=== PATIENT | female | born 1980 | race African-American/Black ===

== ENCOUNTER 2020-09-06 04:13 | Inpatient (IN) | payer OTHER, SELFPAY ==
[2020-09-06] VITALS (16 sets, daily range): BP systolic 146–211; BP diastolic 92–123; PULSE 71–83; RESP 14–21; TEMP 36.4–37.2; O2SAT 94–99; BMI 40.8
--- NOTE | ~2020-09-06 | CT_ITS ---
EXAMINATION: CT HEAD WITHOUT CONTRAST CT ANGIOGRAM NECK WITH CONTRAST CT ANGIOGRAM BRAIN WITH CONTRAST CLINICAL INFORMATION: Dizziness. Left hand numbness. COMPARISON: None available. TECHNIQUE: First, a noncontrast CT of the head was performed. Test bolus sequences followed by intravenous administration 70 mL of Omnipaque 350. Helical imaging was performed in the axial plane from the thoracic inlet to the skull vertex. Delayed postcontrast imaging of the head was also performed. The data was processed at the cytometry technologist workstation for generation of MIP sequences. Angled MIPs and volume rendered reformatted images were also generated at an offline 3D workstation under concurrent supervision. Stenoses are assessed in accordance with NASCET criteria unless otherwise indicated. This CT examination was performed using dose optimization techniques as appropriate, variously including the following: *Automated exposure control *Adjustment of mA and/or kV according to patient size (this includes techniques or standardized protocols for targeted exams where dose is matched to indication/reason for exam; i.e. extremities or head) *Use of iterative reconstruction technique FINDINGS: BRAIN: [There is no intracranial hemorrhage, hydrocephalus, extra-axial surface collection, midline shift, or other herniation pattern. Cross to white matter differentiation is diffusely maintained without evidence of an evolved acute territorial infarct. The basilar cisterns are preserved. No significant soft tissue abnormality. No acute osseous abnormality. There is mild mucosal thickening throughout the ethmoid air cells and the sphenoid sinuses bilaterally. Small retention cysts within the right maxillary sinus. CERVICAL SOFT TISSUES AND LUNG APICES: No significant soft tissue findings within the neck. There is multilevel cervical spondylosis. Artifact versus a prominent disc herniation along the posterior aspect of the C4 vertebral body that would be better assessed with a dedicated cervical spine MRI if there is cervical myelopathy clinically. The imaged upper lungs are clear. NECK CTA: [There is a classic 3 vessel configuration of the aortic arch. Proximal arch vessels are non-stenotic. The vertebral arteries are codominant. No significant ostial stenosis is visualized on either side. Both vertebral arteries are widely patent throughout their extracranial cervical course. Both common carotid arteries are normal in course and caliber.] Lipid rich atherosclerotic plaque results in less than 50% stenoses of the proximal internal carotid arteries bilaterally. BRAIN CTA: [There is normal opacification of major intracranial arteries. No focal flow-limiting stenosis nor discrete proximal large artery occlusion. No aneurysm. Timing of the contrast bolus allows assessment of the major dural venous sinuses, which all opacify normally] CT/CT head/brain wo con IMPRESSION: - No acute intracranial findings. - Lipid rich atherosclerotic plaque results in less than 50% stenoses of the proximal internal carotid arteries bilaterally. No significant arterial stenoses in no acute arterial occlusions within the head or neck. - Multilevel cervical spondylosis. Artifact versus a prominent disc herniation along the posterior aspect of the C4 vertebral body that would be better assessed with a dedicated cervical spine MRI if there is cervical myelopathy clinically.
--- NOTE | ~2020-09-06 | XR_ITS ---
EXAMINATION: XR CHEST CLINICAL INFORMATION: Chest pain COMPARISON: 01/09/2018 TECHNIQUE: Frontal view of the chest was obtained. FINDINGS: Cardiac leads overlie the chest. The lungs are well expanded. There is no focal consolidation, edema, or effusion. No pneumothorax. The cardiomediastinal silhouette is within normal limits. No acute osseous abnormality. XR/XR chest 1V IMPRESSION: Clear lungs.
--- NOTE | ~2020-09-06 | MR_ITS ---
EXAMINATION: BRAIN MRI WITHOUT CONTRAST CLINICAL INFORMATION: Evaluate for stroke. Left upper extremity weakness. COMPARISON: CT angiogram of the head and neck 09/06/2020. TECHNIQUE: Multiplanar MR imaging of the brain was performed without contrast. FINDINGS: There is no acute territorial infarct. No pathological magnetic susceptibility artifact. Intracranial vascular flow voids are maintained. There is no intracranial mass effect or midline shift. No abnormal extra-axial collection. Lateral and third ventricles are normal. No hydrocephalus. Midline structures including the cervicomedullary junction are normal. No acute bone marrow signal changes. There is no mastoid middle ear effusion. [id number]-[id number] paranasal sinus disease primarily affecting the ethmoid air cells. Globes and orbits are symmetric. MR/MR head/brain wo con IMPRESSION: Unremarkable brain MRI. No evidence of acute territorial infarct or hemorrhage.
--- NOTE | ~2020-09-06 | CT_ITS ---
EXAMINATION: CT HEAD WITHOUT CONTRAST CT ANGIOGRAM NECK WITH CONTRAST CT ANGIOGRAM BRAIN WITH CONTRAST CLINICAL INFORMATION: Dizziness. Left hand numbness. COMPARISON: None available. TECHNIQUE: First, a noncontrast CT of the head was performed. Test bolus sequences followed by intravenous administration 70 mL of Omnipaque 350. Helical imaging was performed in the axial plane from the thoracic inlet to the skull vertex. Delayed postcontrast imaging of the head was also performed. The data was processed at the tissue technologist workstation for generation of MIP sequences. Angled MIPs and volume rendered reformatted images were also generated at an offline 3D workstation under concurrent supervision. Stenoses are assessed in accordance with NASCET criteria unless otherwise indicated. This CT examination was performed using dose optimization techniques as appropriate, variously including the following: *Automated exposure control *Adjustment of mA and/or kV according to patient size (this includes techniques or standardized protocols for targeted exams where dose is matched to indication/reason for exam; i.e. extremities or head) *Use of iterative reconstruction technique FINDINGS: BRAIN: [There is no intracranial hemorrhage, hydrocephalus, extra-axial surface collection, midline shift, or other herniation pattern. Cross to white matter differentiation is diffusely maintained without evidence of an evolved acute territorial infarct. The basilar cisterns are preserved. No significant soft tissue abnormality. No acute osseous abnormality. There is mild mucosal thickening throughout the ethmoid air cells and the sphenoid sinuses bilaterally. Small retention cysts within the right maxillary sinus. CERVICAL SOFT TISSUES AND LUNG APICES: No significant soft tissue findings within the neck. There is multilevel cervical spondylosis. Artifact versus a prominent disc herniation along the posterior aspect of the C4 vertebral body that would be better assessed with a dedicated cervical spine MRI if there is cervical myelopathy clinically. The imaged upper lungs are clear. NECK CTA: [There is a classic 3 vessel configuration of the aortic arch. Proximal arch vessels are non-stenotic. The vertebral arteries are codominant. No significant ostial stenosis is visualized on either side. Both vertebral arteries are widely patent throughout their extracranial cervical course. Both common carotid arteries are normal in course and caliber.] Lipid rich atherosclerotic plaque results in less than 50% stenoses of the proximal internal carotid arteries bilaterally. BRAIN CTA: [There is normal opacification of major intracranial arteries. No focal flow-limiting stenosis nor discrete proximal large artery occlusion. No aneurysm. Timing of the contrast bolus allows assessment of the major dural venous sinuses, which all opacify normally] CT/CT angio head neck IMPRESSION: - No acute intracranial findings. - Lipid rich atherosclerotic plaque results in less than 50% stenoses of the proximal internal carotid arteries bilaterally. No significant arterial stenoses in no acute arterial occlusions within the head or neck. - Multilevel cervical spondylosis. Artifact versus a prominent disc herniation along the posterior aspect of the C4 vertebral body that would be better assessed with a dedicated cervical spine MRI if there is cervical myelopathy clinically.
--- NOTE | ~2020-09-06 | US_ITS ---
EXAMINATION: US RENAL DOPPLER CLINICAL INFORMATION: Rule out renal artery stenosis. COMPARISON: None TECHNIQUE: Doppler, color and cross-scale evaluation of the kidneys. Cross-scale color and Doppler evaluation of the renal arteries including waveform spectral analysis. FINDINGS: The kidneys are normal in contour and symmetric in size of the right kidney measuring 13.4 x 7.3 x 5.8 cm and the left kidney measuring 12.4 x 5.8 x 5.1 cm. No renal stone, mass or hydronephrosis is seen. There are gallstones. The visualized abdominal aorta is normal in caliber. Aortic peak systolic velocity is upper normal measuring 99 cm/s. The right renal artery is patent. Right renal artery peak systolic velocity measures 152 cm/s proximally, 196 cm/s in the mid portion and 113 cm/s distally. Right renal artery to aorta ratio is 2. Resistive indices of the interlobar renal arteries in the right kidney measure 0.5-0.7. The right renal vein is patent. The left renal artery is patent. Left renal artery peak systolic velocities measure 185 cm/s proximally, 171 cm/s in the mid portion and 175 cm/s distally. Left renal artery to aorta ratio is 1.9. Resistive indices of the interlobar renal arteries in the left kidney measure 0.7. The left renal artery is patent. US/US renal doppler IMPRESSION: Normal appearing kidneys. Increased peak systolic velocities in the bilateral renal arteries suggestive of less than 60% stenosis bilaterally. Gallstones.
--- NOTE | 2020-09-06 04:31 | ECG_ITS ---
Test Reason : HIGH BP Blood Pressure : / mmHG Vent. Rate : 075 BPM Atrial Rate : 075 BPM P-R Int : 162 ms QRS Dur : 096 ms QT Int : 416 ms P-R-T Axes : 048 037 045 degrees QTc Int : 464 ms Normal sinus rhythm Anteroseptal infarct (cited on or before 09-JAN-2018) Abnormal ECG When compared with ECG of 09-JAN-2018 00:52, No significant change was found Referred By: Adia Vásquez Electronically Signed By:KULDIP LOPEZ
--- NOTE | 2020-09-06 04:57 | ED.CHESTPAIN ---
HPI - Chest Pain General Chief Complaint: Chest Pain Stated Complaint: HBP/chest pain Time Seen by Provider: 09/06/20 04:28 Source: patient Mode of arrival: ambulatory History of Present Illness HPI narrative: 39-year-old female with known high blood pressure as well depression presents with complaints of being at work and noticing that her left hand felt numb and that she also experienced dizziness as well as shortness of breath and chest pressure. She received 324 mg of aspirin at her job, but states that this did not help her symptoms. She states that she has continued uses same dose of her blood pressure medication without any recent changes, but states she has been under additional stress due to the loss of family members. Related Data Allergies Allergy/AdvReac Type Severity Reaction Status Date / Time No Known Allergies Allergy Unverified 11/19/19 19:31 [No Known Allergies*] Review of Systems Review of Systems: Pertinent positives and negatives as stated in HPI 10 point Review of systems is otherwise negative PMFSH Past Medical History Source: nursing notes reviewed Medical History Heart disease Hypertension Social History Social History Advance Directives: No Patient : No Physical Exam Vital Signs: Vital Signs: Last Vital Signs Temp 97.6 F 09/06/20 04:21 Pulse 71 09/06/20 06:05 Resp 16 09/06/20 06:05 BP 161/96 H 09/06/20 06:05 Pulse Ox 94 09/06/20 04:30 Body Mass Index 40.8 VITAL SIGNS: Reviewed. GENERAL: Well developed, well nourished, in no acute distress. HEAD: Normocephalic/atraumatic EYES: PERRLA, EOMI intact without pain, no nystagmus EARS: Ext canals without abnormality, TMs non-bulging and non-erythematous NOSE: Nares patent bilateral OROPHARYNX: no oral lesions noted, posterior pharynx clear NECK: Supple, no adenopathy LUNGS: Normal breath sounds. No adventitious sounds or accessory muscle use. SpO2<94> CARDIOVASCULAR: Regular rate and rhythm without noted murmurs, no JVD mild, nonpitting lower extremity edema, symmetrical pulses noted at radial/ DP/PT. ABDOMEN: Soft, non-tender, non-distended with bowel sounds. No rigidity. No guarding. No palpable masses or hernias noted LEFT UPPER EXTREMITY: on evaluation of sensation patient's entire hand is numb, but on sensation check is entirely intact circumferentially proximal to the wrist, capillary refill is less than 3 seconds, and is tactile warm, palpable ulnar and radial pulses are present SKIN: Inspection of the skin reveals no rashes NEUROLOGIC: Alert and oriented x 4. Strength and sensation to light touch were grossly intact x 4, no pronator drift, cranial nerves 2-12 grossly intact, left hand numbness not felt to be secondary to a focal deficit. NIH Stroke Scale Level of Consciousness: Alert Level of Consciousness Questions: Answers both questions correctly Level of Consciousness Commands: Performs both tasks correctly Best Gaze: Normal Visual: No visual loss Facial Palsy: Normal Motor Arm (Right): No drift Motor Arm (Left): No drift Motor Leg (Right): No drift Motor Leg (Left): No drift Limb Ataxia: Absent Sensory: Mild to moderate sensory loss Best Language: No aphasia Dysarthia: Normal Extinction and Inattention: No abnormality Score: 1 Course Course Course Narrative: 39-year-old female with history and clinical presentation consistent with hypertensive urgency and will re-evaluate after patient receives 10 mg of labetalol. Lab work, EKG, chest x-ray, urinalysis are pending. Aspirin was not administered as patient received at her work. All symptoms felt to be secondary to hypertensive episode and will re-evaluate after blood pressure improves. On re-evaluation after blood pressure improvement patient still with symptoms of dizziness as well as left hand numbness, motor function intact. Decision made to pursue CT of the head. Review of all investigations negative for acute findings, although troponin detected at 5.2 and will be repeated this is likely secondary to hypertensive episode. There are no noted EKG changes when compared to prior. Signed out to Dr Glass. MDM - Chest Pain Lab Data Result diagrams: 09/06/20 04:55 09/06/20 04:55 Labs: Lab Results 09/06/20 09/06/20 09/06/20 Range/Units 04:55 04:55 04:55 WBC 6.9 (4.8-10.8) X10*3/uL RBC 4.04 L (4.20-5.50) X10*6/uL Hgb 11.1 L (12.0-16.0) g/dl Hct 34.2 L (37-47) % MCV 84.7 (80-98) fL MCH 27.5 (27.0-33.0) pg MCHC 32.5 (31.0-35.0) g/dl RDW 13.4 (11.0-16.0) % Plt Count 255 (160-400) X10*3/uL MPV 11.8 (9.4-12.3) fL Immature Gran % (Auto) 0.3 (0.0-0.4) % Neut % (Auto) 55.3 (45-73) % Lymph % (Auto) 34.3 (20-40) % Ashley % (Auto) 8.1 (2-11) % Eos % (Auto) 1.9 (0-4) % Baso % (Auto) 0.1 (0-2) % Lymph # (Auto) 2.4 (1.2-4.9) X10*3/uL Ashley # (Auto) 0.6 (0.1-1.2) X10*3/uL Eos # (Auto) 0.1 (0.0-0.4) X10*3/uL Baso # (Auto) 0.0 (0.0-0.2) X10*3/uL Abs Immat Gran (auto) 0.02 (0.00-0.03) X10*3/uL Absolute Neuts (auto) 3.8 (2.0-8.3) X10*3/uL Absolute Nucleated RBC 0.000 (0.0-0.012) X10*3/uL Nucleated RBC % (auto) 0.0 (0.0-0.2) /100WBC PT 12.9 (9.9-13.0) SEC INR 1.1 (0.9-1.1) Sodium 138 (135-145) mmol/L Potassium 3.4 (3.3-5.1) mmol/L Chloride 104 (96-108) mmol/L Carbon Dioxide 25 (22-29) mmol/L Anion Gap 12 (12-20) BUN 12 (9-16) mg/dL Creatinine 0.75 (0.5-1.4) mg/dL Estim Creat Clear Calc 116.5 Estimated GFR > 60 Random Glucose 159 H (60-115) mg/dL Calcium 9.1 (8.4-10.2) mg/dL Magnesium 1.7 (1.6-2.6) mg/dL Total Bilirubin 0.2 (0.0-1.0) mg/dL AST 15 (5-31) U/L ALT 12 (0-31) U/L Alkaline Phosphatase 38 L (39-117) U/L Troponin I High Sens (<3.5-17.0) ng/L Total Protein 7.0 (6.5-8.0) g/dL Albumin 3.9 (3.5-5.0) g/dL Ethyl Alcohol mg/dL 09/06/20 09/06/20 Range/Units 04:55 04:55 WBC (4.8-10.8) X10*3/uL RBC (4.20-5.50) X10*6/uL Hgb (12.0-16.0) g/dl Hct (37-47) % MCV (80-98) fL MCH (27.0-33.0) pg MCHC (31.0-35.0) g/dl RDW (11.0-16.0) % Plt Count (160-400) X10*3/uL MPV (9.4-12.3) fL Immature Gran % (Auto) (0.0-0.4) % Neut % (Auto) (45-73) % Lymph % (Auto) (20-40) % Ashley % (Auto) (2-11) % Eos % (Auto) (0-4) % Baso % (Auto) (0-2) % Lymph # (Auto) (1.2-4.9) X10*3/uL Ashley # (Auto) (0.1-1.2) X10*3/uL Eos # (Auto) (0.0-0.4) X10*3/uL Baso # (Auto) (0.0-0.2) X10*3/uL Abs Immat Gran (auto) (0.00-0.03) X10*3/uL Absolute Neuts (auto) (2.0-8.3) X10*3/uL Absolute Nucleated RBC (0.0-0.012) X10*3/uL Nucleated RBC % (auto) (0.0-0.2) /100WBC PT (9.9-13.0) SEC INR (0.9-1.1) Sodium (135-145) mmol/L Potassium (3.3-5.1) mmol/L Chloride (96-108) mmol/L Carbon Dioxide (22-29) mmol/L Anion Gap (12-20) BUN (9-16) mg/dL Creatinine (0.5-1.4) mg/dL Estim Creat Clear Calc Estimated GFR Random Glucose (60-115) mg/dL Calcium (8.4-10.2) mg/dL Magnesium (1.6-2.6) mg/dL Total Bilirubin (0.0-1.0) mg/dL AST (5-31) U/L ALT (0-31) U/L Alkaline Phosphatase (39-117) U/L Troponin I High Sens 5.2 (<3.5-17.0) ng/L Total Protein (6.5-8.0) g/dL Albumin (3.5-5.0) g/dL Ethyl Alcohol < 10 mg/dL ECG Data ECG #1: Attestation: I personally reviewed and interpreted this ECG as follows: Prior ECG tracings: available for review ( 01/09/2018 no acute changes on comparison) Interpretation: normal sinus rhythm, HR -75, no acute evidence of ischemia, [place] /QRS /QTC are within normal limits.
[2020-09-06] MEDS: Labetalol HCL 100 MG/20 ML VIAL 10 MG IVPUSH (05:00)
[2020-09-06 05:01] LABS: Basophils Percent Auto 0.1 % (0-2); Eosinophils Absolute Auto 0.1 X10*3/uL (0.0-0.4); Eosinophils Percent Auto 1.9 % (0-4); Hematocrit 34.2 % (37-47); Hemoglobin 11.1 g/dl (12.0-16.0); Imm Gran Abs Auto 0.02 X10*3/uL (0.00-0.03); Imm Gran Pct Auto 0.3 % (0.0-0.4); Lymphocytes Absolute Auto 2.4 X10*3/uL (1.2-4.9); Lymphocytes Percent Auto 34.3 % (20-40); MANUAL DIFF FLAG NO; Mean Corpuscular HGB Conc 32.5 g/dl (31.0-35.0); Mean Corpuscular Hemoglobin 27.5 pg (27.0-33.0); Mean Corpuscular Volume 84.7 fL (80-98); Mean Platelet Volume 11.8 fL (9.4-12.3); Monocytes Absolute Auto 0.6 X10*3/uL (0.1-1.2); Monocytes Percent Auto 8.1 % (2-11); Neutrophils Absolute Auto 3.8 X10*3/uL (2.0-8.3); Neutrophils Percent Auto 55.3 % (45-73); Platelet Count 255 X10*3/uL (160-400); Red Blood Count 4.04 X10*6/uL (4.20-5.50); Red Cell Distribution Width 13.4 % (11.0-16.0); White Blood Count 6.9 X10*3/uL (4.8-10.8)
[2020-09-06 05:06] LABS: INTERNATIONAL NORM RATIO 1.1 (0.9-1.1); Prothrombin Time 12.9 SEC (9.9-13.0)
[2020-09-06 05:24] LABS: Troponin-I High Sensitivity 5.2 ng/L (<3.5-17.0)
[2020-09-06 05:29] LABS: Ethanol < 10 mg/dL
[2020-09-06 05:34] LABS: Alanine Aminotransferase 12 U/L (0-31); Albumin Level 3.9 g/dL (3.5-5.0); Alkaline Phosphatase 38 U/L (39-117); Anion Gap 12 (12-20); Aspartate Amino Transferase 15 U/L (5-31); Bilirubin Total 0.2 mg/dL (0.0-1.0); Blood Urea Nitrogen 12 mg/dL (9-16); Calcium 9.1 mg/dL (8.4-10.2); Carbon Dioxide 25 mmol/L (22-29); Chloride 104 mmol/L (96-108); Creatinine Clr Calc Pharmacy 116.5; Estimated Glomerular Filt Rate > 60; Glucose Random 159 mg/dL (60-115); Magnesium 1.7 mg/dL (1.6-2.6); Potassium 3.4 mmol/L (3.3-5.1); Sodium 138 mmol/L (135-145)
[2020-09-06 07:43] LABS: Glucose Urine UA NEG (NEG); Leukocyte Esterase Urine NEG (NEG); Nitrite Urine NEG (NEG); PH 5.5 (5.0-8.0); Specific Gravity - Urine <= 1.005 (1.005-1.025); Urine Blood 3+ (NEG); Urine Ketones NEG (NEG); Urine Protein NEG (NEG-TRACE)
[2020-09-06 07:45] LABS: Appearance Urine CLEAR; Color Urine STRAW
[2020-09-06] MEDS: iohexoL 350 MG/ML 100 ML INFUS..BTL 70 ML IV (07:47)
[2020-09-06 07:49] LABS: COVID-19 Test Negative (Negative); IDNOW Serial# 9DD0AD1C
[2020-09-06 07:55] LABS: Squamous Epithelial Cell Urine 1+ /LPF; WBC Urine 0-2 /HPF (0-4)
[2020-09-06 07:56] LABS: Bacteria Urine TRACE /LPF
--- NOTE | 2020-09-06 08:02 | PHA.MEDREC ---
Pharmacy Consult ? Medication Reconciliation Pharmacy has completed the medication reconciliation. Patient unsure of the medications she is taking. The only pharmacy she uses is [facility] in [place]. She reports she is taking an antidepressant but the only medication that has been filled is Lexapro in November 2019. She also said valsartan however valsartan/HCTZ has not been filled since 06/29/2020. Monica Townsend, Maria LD
[2020-09-06 08:19] LABS: Amphetamine Screen Urine Not Detected (Not Detect); Barbiturates, Urine Not Detected (Not Detect); Benzodiazepines Screen Urine Not Detected (Not Detect); Cannabinoid Screen Urine POSITIVE (Not Detect); Cocaine Screen Urine Not Detected (Not Detect); Opiate Screen Urine Not Detected (Not Detect); Phencyclidine Screen Urine Not Detected (Not Detect)
[2020-09-06 08:58] LABS: Troponin-I High Sensitivity 3.7 ng/L (<3.5-17.0)
[2020-09-06] MEDS: Labetalol HCL 100 MG/20 ML VIAL IVPUSH (09:04)
[2020-09-06] MEDS: amLODIPine Besylate 5 MG TABLET PO (10:58)
[2020-09-06] MEDS: Valsartan 160 MG TABLET PO (10:59)
--- NOTE | 2020-09-06 12:01 | PM.IMHP ---
History of Present Illness Date of Service: 09/06/20 Chief Complaint: left arm numbness, a 39 years old lady with PMH of hypertension, morbid obesity who presents to the hospital with a complaint of left upper extremity weakness and numbness for 1 day prior to admission. The patient reported that she started feeling numbness in left lower extremity yesterday morning but he did not think much about at that point but as the day continued she felt some weakness and the more than just numbness with associated chest heaviness with dyspnea on exertion occasions but no reported nausea, vomiting, headache, shortness of breath or urinary symptoms. She reports that at times she goes to the gym and try to play games but she has to stop as her blood pressure shoots up and the machine is showed down. She reports she has a family history of strokes diabetes with elevated blood pressure readings. She was diagnosed 1st time with hypertension with her 1st but resolved after that. She had preeclampsia during her last continue to elevated blood pressure readings since then 10 years ago. In the emergency she was found to blood pressure reading of 210/120 responded mildly to usage of labetalol. CT scan of the head was negative for any stroke or bleeding but a CTA showed carotid artery disease bilaterally. Will be admitted to the hospital for further evaluation and treatment. Review of Systems Review of Systems: No fever, chills or weakness chest discomfort, no palpitation No shortness of breath or coughing No abdominal pain, nausea or vomiting No urinary symptoms No any rash or wounds Right upper extremity wakness and numbnessa [facility] Medical History Heart disease Hypertension Social History Advance Directives: No Patient : No Meds Allergies Allergy/AdvReac Type Severity Reaction Status Date / Time No Known Allergies Allergy Unverified 11/19/19 19:31 [No Known Allergies*] Active Medications: Current Medications Generic Name Dose Route Start Last Admin Trade Name Freq PRN Reason Stop Dose Admin Acetaminophen 650 mg 09/06/20 11:28 Acetaminophen 325 Mg Tablet PO Q6H PRN Pain, Mild (Pain Scale 1-3) Aspirin 81 mg 09/07/20 09:00 Aspirin Enteric Coated 81 Mg Tablet. PO DAILY NAVIN Atorvastatin Calcium 40 mg 09/06/20 11:35 Atorvastatin Calcium 40 Mg Tablet PO DAILY [facility] Enoxaparin Sodium 40 mg 09/06/20 11:30 Enoxaparin Sodium 40 Mg/0.4 Ml Syringe SUBCUT Q24H [facility] Ondansetron HCl 4 mg 09/06/20 11:28 Ondansetron Hcl 4 Mg/2 Ml Vial IVPUSH Q8H PRN Nausea and Vomiting Pharmacy Consult 1 each 09/06/20 07:09 Consult Rx Perform Med Rec MISCELLANE ONCE PRN Consult order Sodium Chloride 3 ml 09/06/20 16:00 0.9 % Sodium Chloride Flush 3 Ml Syringe IVFLUSH QSHIFT [facility] Home Medications Medication Instructions Recorded Confirmed Last Taken Type valsartan-hydrochlorothiazide 1 tab PO DAILY 09/06/20 09/06/20 Unknown History Physical Exam Vital Signs and Narrative: Vital Signs: Last Vital Signs Temp 97.6 F 09/06/20 04:21 Pulse 83 09/06/20 10:43 Resp 14 09/06/20 10:43 BP 185/107 H 09/06/20 10:59 Pulse Ox 94 09/06/20 04:30 Body Mass Index 40.8 Const: Other: Constitutional : Alert, oriented, mildly anxious Neck : Normal inspection, Supple Cardiovascular : RRR, S1 S2, no lower extremity edema Respiratory : Good bilateral air entry, no crackles, wheezes or rhonchi Gastrointestinal: soft, lax, Normal bowel sounds, Non tender Skin : Warm/Dry, No rash Neurological : Alert & oriented x3, right hand mild weakness on the bacteriologist soil Results Labs CBC and Chem 7: 09/06/20 04:55 09/06/20 04:55 Labs: Laboratory Results - last 24 hr 09/06/20 09/06/20 09/06/20 04:55 04:55 04:55 MCV 84.7 MCH 27.5 MCHC 32.5 RDW 13.4 Plt Count 255 MPV 11.8 Immature Gran % (Auto) 0.3 Neut % (Auto) 55.3 Lymph % (Auto) 34.3 [place] % (Auto) 8.1 Eos % (Auto) 1.9 Baso % (Auto) 0.1 Lymph # (Auto) 2.4 [place] # (Auto) 0.6 Eos # (Auto) 0.1 Baso # (Auto) 0.0 Abs Immat Gran (auto) 0.02 Absolute Neuts (auto) 3.8 Absolute Nucleated RBC 0.000 Nucleated RBC % (auto) 0.0 PT 12.9 INR 1.1 Anion Gap 12 Estim Creat Clear Calc 116.5 Estimated GFR > 60 Random Glucose 159 H Calcium 9.1 Magnesium 1.7 Total Bilirubin 0.2 AST 15 ALT 12 Alkaline Phosphatase 38 L Troponin I High Sens Total Protein 7.0 Albumin 3.9 Urine Color Urine Appearance Urine pH Ur Specific [place] Urine Protein Urine Glucose (UA) Urine Ketones Urine Blood Urine Nitrite Ur Leukocyte Esterase Urine RBC Urine WBC Ur Squamous Epith Cells Urine Bacteria Urine Opiates Screen Ur Barbiturates Screen Ur Phencyclidine Scrn Ur Amphetamines Screen U Benzodiazepines Scrn Urine Cocaine Screen U Marijuana (THC) Screen Ethyl Alcohol COVID-19 (BERTRAM) COVID-19 [place] 09/06/20 09/06/20 09/06/20 04:55 04:55 07:22 MCV MCH MCHC RDW Plt Count MPV Immature Gran % (Auto) Neut % (Auto) Lymph % (Auto) [place] % (Auto) Eos % (Auto) Baso % (Auto) Lymph # (Auto) [place] # (Auto) Eos # (Auto) Baso # (Auto) Abs Immat Gran (auto) Absolute Neuts (auto) Absolute Nucleated RBC Nucleated RBC % (auto) PT INR Anion Gap Estim Creat Clear Calc Estimated GFR Random Glucose Calcium Magnesium Total Bilirubin AST ALT Alkaline Phosphatase Troponin I High Sens 5.2 Total Protein Albumin Urine Color Urine Appearance Urine pH Ur Specific [place] Urine Protein Urine Glucose (UA) Urine Ketones Urine Blood Urine Nitrite Ur Leukocyte Esterase Urine RBC Urine WBC Ur Squamous Epith Cells Urine Bacteria Urine Opiates Screen Ur Barbiturates Screen Ur Phencyclidine Scrn Ur Amphetamines Screen U Benzodiazepines Scrn Urine Cocaine Screen U Marijuana (THC) Screen Ethyl Alcohol < 10 COVID-19 (BERTRAM) Negative COVID-19 [place] [facility] See Note 09/06/20 09/06/20 09/06/20 07:22 07:22 08:17 MCV MCH MCHC RDW Plt Count MPV Immature Gran % (Auto) Neut % (Auto) Lymph % (Auto) [place] % (Auto) Eos % (Auto) Baso % (Auto) Lymph # (Auto) [place] # (Auto) Eos # (Auto) Baso # (Auto) Abs Immat Gran (auto) Absolute Neuts (auto) Absolute Nucleated RBC Nucleated RBC % (auto) PT INR Anion Gap Estim Creat Clear Calc Estimated GFR Random Glucose Calcium Magnesium Total Bilirubin AST ALT Alkaline Phosphatase Troponin I High Sens 3.7 Total Protein Albumin Urine Color STRAW Urine Appearance CLEAR Urine pH 5.5 Ur Specific [place] <= 1.005 Urine Protein NEG Urine Glucose (UA) NEG Urine Ketones NEG Urine Blood 3+ H Urine Nitrite NEG Ur Leukocyte Esterase NEG Urine RBC 1-4 Urine WBC 0-2 Ur Squamous Epith Cells 1+ Urine Bacteria TRACE Urine Opiates Screen Not Detected Ur Barbiturates Screen Not Detected Ur Phencyclidine Scrn Not Detected Ur Amphetamines Screen Not Detected U Benzodiazepines Scrn Not Detected Urine Cocaine Screen Not Detected U Marijuana (THC) Screen POSITIVE H Ethyl Alcohol COVID-19 (BERTRAM) COVID-19 Clin Com Imaging Radiologist's Impressions: Impressions Chest X-Ray 09/06/20 04:28 IMPRESSION: Clear lungs. Head CT 09/06/20 07:01 IMPRESSION: - No acute intracranial findings. - Lipid rich atherosclerotic plaque results in less than 50% stenoses of the proximal internal carotid arteries bilaterally. No significant arterial stenoses in no acute arterial occlusions within the head or neck. - Multilevel cervical spondylosis. Artifact versus a prominent disc herniation along the posterior aspect of the C4 vertebral body that would be better assessed with a dedicated cervical spine MRI if there is cervical myelopathy clinically. Head/Neck CTA 09/06/20 07:05 IMPRESSION: - No acute intracranial findings. - Lipid rich atherosclerotic plaque results in less than 50% stenoses of the proximal internal carotid arteries bilaterally. No significant arterial stenoses in no acute arterial occlusions within the head or neck. - Multilevel cervical spondylosis. Artifact versus a prominent disc herniation along the posterior aspect of the C4 vertebral body that would be better assessed with a dedicated cervical spine MRI if there is cervical myelopathy clinically. Assessment and Plan (1) Chest pain: Qualifiers: Chest pain type: unspecified Qualified Code(s): R07.9 - Chest pain, unspecified Status: Acute (2) Hypertensive emergency: Status: Acute (3) Left arm weakness: Status: Acute (4) Numbness of left hand: Status: Acute a 39 years old lady with PMH of hypertension, morbid obesity who presents to the hospital with a complaint of left upper extremity weakness and numbness for 1 day prior to admission. Left upper extremity weakness, numbness CT scan negative for any acute findings Could be resembling minor stroke, TIA To check MRI of the brain to get Neurology evaluation to do lipid profile Start baby aspirin and atorvastatin Hypertensive emergency blood pressure significantly elevated on 200/120 increase valsartan to 320 Start amlodipine 5 mg daily Consider labetalol To get Nephrology evaluation to check an echo To check ultrasound Doppler of renal arteries chest discomfort No EKG changes to suggest ACS Troponin trended negative Likely secondary to high blood pressure readings Keep on telemetry for now morbid obesity Advised to lose weight as it is affecting her general health DVT PPX Lovenox Quality Stroke Does the patient have a stroke diagnosis?: No VTE Prior VTE?: No VTE Risk Level:: Medical - moderate - high VTE Device Contraindication: Treatment Not Indicated VTE Drug Contraindication: N/A - Med Ordered
[2020-09-06] MEDS: Enoxaparin Sodium 40 MG/0.4 ML SYRINGE SUBCUT (12:03)
[2020-09-06] MEDS: Atorvastatin Calcium 40 MG TABLET PO (15:05)
[2020-09-06] MEDS: 0.9 % Sodium Chloride Flush 3 ML SYRINGE IVFLUSH ×2 (16:49→19:38)
--- NOTE | 2020-09-06 17:43 | PM.NEUROCN ---
History of Present Illness Data of Consult Service Date: 09/06/20 Primary Care Provider: Unknown Physician HPI Reason for consult: Left upper extremity numbness and weakness, along with chest pain This is a 39-year-old woman with a history of for poorly controlled hypertension admitted with a hypertensive emergency complaining a one-day history of numbness in the left hand that started in the fingers then it went into the palm and up to the midforearm with clumsiness and then chest pain and some left ankle pain. She had no speech impediment or facial droop. She still feels that the left hand is nnumb. It is not painful except if she uses it. She has some pain. There is no neck pain or stiffness. She had an MRI of the brain which shows no acute infarct and shows no evidence of MS or any other abnormality. She had a CTA which showed less than 50% stenosis of both carotid arteries due to soft plaque. Review of Systems Eyes: Eyes: Reports no additional eye complaints ENT: Reports system reviewed and no additional complaints, except as documented and Reports Normal hearing present Cardiovascular: Cardiovascular: Reports no additional cardiovascular complaints Respiratory: Respiratory: Reports no additional respiratory complaints Gastrointestinal: Gastrointestinal: Reports no additional gastrointestinal complaints Musculoskeletal: Musculoskeletal: Reports no additional musculoskeletal complaints Integumentary/Breasts: Skin/Breast: Reports system reviewed and no additional complaints, except as docu Neurologic: Reports as per HPI and Reports Normal hearing present Psychiatric: Psychiatric: Reports as per HPI Endocrine: Endocrine: Reports no additional endocrine complaints Hematologic/Lymphatic: Hematologic/Lymphatic: Reports no additional hematologic/lymphatic complaints Allergic/Immunologic: Allergic/Immunologic: Reports no additional allergic/immunologic complaints [facility] Past Medical History Medical History Heart disease Hypertension Social History Social History Household Members: Family and Children Housing: House Do you presently have visiting nurse or other home services: No Patient Tobacco Use Status: Never used Tobacco e-Cigarette/Vaping Use: Never Used Currently Displaying Signs/Symptoms of Drug Intoxication Withdrawal: No Advance Directives: No Do you have thoughts of harming others: None Do you have a plan to hurt others: No Plan Patient : No Meds Allergies Allergy/AdvReac Type Severity Reaction Status Date / Time No Known Allergies Allergy Unverified 11/19/19 19:31 [No Known Allergies*] Active Medications: Current Medications Generic Name Dose Route Start Last Admin Trade Name Freq PRN Reason Stop Dose Admin Acetaminophen 650 mg 09/06/20 11:28 Acetaminophen 325 Mg Tablet PO Q6H PRN Pain, Mild (Pain Scale 1-3) Amlodipine Besylate 5 mg 09/07/20 09:00 Amlodipine Besylate 5 Mg Tablet PO DAILY [facility] Protocol Aspirin 81 mg 09/07/20 09:00 Aspirin Enteric Coated 81 Mg Tablet.Dr PO DAILY [facility] Atorvastatin Calcium 40 mg 09/06/20 11:35 09/06/20 15:05 Atorvastatin Calcium 40 Mg Tablet PO 40 mg DAILY [facility] Administration Enoxaparin Sodium 40 mg 09/06/20 11:30 09/06/20 12:03 Enoxaparin Sodium 40 Mg/0.4 Ml Syringe SUBCUT 40 mg Q24H [facility] Administration Ondansetron HCl 4 mg 09/06/20 11:28 Ondansetron Hcl 4 Mg/2 Ml Vial IVPUSH Q8H PRN Nausea and Vomiting Pharmacy Consult 1 each 09/06/20 07:09 Consult Rx Perform Med Rec MISCELLANE ONCE PRN Consult order Sodium Chloride 3 ml 09/06/20 16:00 09/06/20 16:49 0.9 % Sodium Chloride Flush 3 Ml Syringe IVFLUSH 3 ml QSHIFT [facility] Administration Valsartan 320 mg 09/07/20 09:00 Valsartan 320 Mg Tablet PO DAILY [facility] Protocol Home Medications Medication Instructions Recorded Confirmed Last Taken Type valsartan-hydrochlorothiazide 1 tab PO DAILY 09/06/20 09/06/20 Unknown History Physical Exam Vital Signs: Vital Signs: Last Vital Signs Temp 98.7 F 09/06/20 16:28 Pulse 81 09/06/20 16:28 Resp 18 09/06/20 16:28 BP 168/95 H 09/06/20 16:28 Pulse Ox 99 09/06/20 16:28 Body Mass Index 40.8 Const: General: cooperative, comfortable, no acute distress, well developed, alert and awake Nutritional Appearance: well nourished Orientation/consciousness: oriented to person, oriented to place and oriented to time Limitations: no limitations HENMT: Head: Yes normal to inspection, Yes normocephalic and Yes atraumatic Ears: hearing grossly normal bilaterally General nose exam: Normal external nose present Face and sinus: Yes normal facial exam Mouth: Normal oral and palatal mucosa present Eyes: General: appearance normal, both eyes and all related structures Visual Stevens: normal visual stevens by confrontation Alignment and Position: alignment normal Periorbital: periorbital findings normal Eyelids: Yes eyelids normal Conjunctivae: conjunctivae normal Sclerae: sclerae normal Corneas: corneas normal Pupils: Equal, round and reactive pupils present and Pupil accommodation reflex normal EOM: EOMs intact bilaterally Direct Ophthalmoscopy: normal light reflex Neck: Neck: Yes normal visual inspection, Yes full ROM and Yes no meningeal signs Thyroid: Thyroid normal Carotids: normal carotid upstroke and bounding pulses Chest: Chest palpation & inspection: normal inspection of the chest Resp: Effort & Inspection: normal respiratory effort Auscultation: clear to auscultation bilaterally Cardio: Rate: regular rate Rhythm: regular rhythm Heart sounds: S1 normal heart sound present and S2 normal heart sound present Peripheral pulses: Peripheral pulses 2+ throughout GI: Inspection: Yes normal to inspection Percussion: Yes normal to percussion Auscultation: normal bowel sounds Rectal Exam - Female: deferred Back/Spine/Pelvis: Cervical Spine: normal cervical lordosis and cervical ROM normal Thoracic/Lumbar Spine: thoracic and lumbar spine normal to inspection Skin: General skin exam: no rashes or lesions noted Neuro: Other: She has no drift of the upper extremities, but on individual muscle testing there is clearly submaximal voluntary effort in all movements, including 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 She does not appose her finger and is slow in rapid alternating movements. General: oriented to person, oriented to place, oriented to time, gait normal, tone normal, moves all extremities, Normal light touch and pain sensation, no meningeal signs, no focal motor deficits, CN's II-XI intact bilaterally, normal sensation to monofilament and deep tendon reflexes 2+ bilaterally Cranial nerves: Yes CN's II-XII intact bilaterally, Yes Equal, round and reactive pupils present, Yes Bilaterally intact EOM present, Yes Nystagmus not present, Yes Normal facial strength present, Yes Midline tongue present, Yes Normal gag reflex present, Yes Symmetric palate elevation present, Yes Normal hearing present and Yes Ability to bilaterally rotate head present Cognition (Neuro): normal cognition Speech: Other speech findings present (Neuro) Gait exam (Neuro): Normal gait present Motor exam (neuro): Pronator motor function not present, no tremor noted, no asterixis, Motor fasciculations not present, Normal motor muscle tone present throughout and Motor abnormalities not present Sensory Exam: Bilaterally intact graphesthesia Deep tendon reflexes (DTR's): Right triceps reflex intensity grade: 2+, Left triceps reflex intensity grade: 2+, Rt Biceps (C5, C6): 2+, Left biceps reflex intensity grade: 2+, Right brachioradialis reflex intensity grade: 2+, Left brachioradialis reflex intensity grade: 2+, Right patellar reflex intensity grade: 2+, Left patellar reflex intensity grade: 2+, Right ankle reflex intensity grade: 2+ and Left ankle reflex intensity grade: 2+ Plantar Reflex Responses: downgoing: right, left and bilateral Coordination: [id number] test normal and [id number] test normal Pupils: Normal pupillary reactivity/response: bilateral Extrem: General: Yes normal to inspection, Yes normal exam except as noted and Yes no pedal edema Psych: Appearance: grossly normal Mental Status: mental status grossly normal Speech and movement: Normal speech and movement present and Clear speech present Affect: normal affect Attitude: cooperative Thought process: Normal thought process present Results Labs CBC & Chem 7: 09/06/20 04:55 09/06/20 04:55 Labs: Short CBC 09/06/20 Range/Units 04:55 WBC 6.9 (4.8-10.8) X10*3/uL Hgb 11.1 L (12.0-16.0) g/dl Hct 34.2 L (37-47) % Plt Count 255 (160-400) X10*3/uL BMP 09/06/20 04:55 Sodium 138 Potassium 3.4 Chloride 104 Carbon Dioxide 25 BUN 12 Creatinine 0.75 Calcium 9.1 Liver Function 09/06/20 Range/Units 04:55 Total Bilirubin 0.2 (0.0-1.0) mg/dL AST 15 (5-31) U/L ALT 12 (0-31) U/L Alkaline Phosphatase 38 L (39-117) U/L Albumin 3.9 (3.5-5.0) g/dL Urine 09/06/20 Range/Units 07:22 Urine Color STRAW Urine Appearance CLEAR Urine pH 5.5 (5.0-8.0) Ur Specific [place] <= 1.005 (1.005-1.025) Urine Protein NEG (NEG-TRACE) MG/DL Urine Glucose (UA) NEG (NEG) MG/DL Assessment and Plan (1) Numbness of left hand: Status: Acute No clearly or objective evidence of a neurological deficit. Her exam is suggestive of her submaximal voluntary effort. MRI being normal rules out acute stroke, MS, et cetera. (2) Left arm weakness: Status: Acute MRI of the cervical spine To rule out cervical cord abnormality (3) Hypertensive emergency: Status: Acute Blood pressure control Procedures Date of Service Date of Service: 09/06/20
--- NOTE | 2020-09-06 19:08 | PM.CNNEP ---
History of Present Illness Reason for Consult Consult date: 09/06/20 Reason for consult: HTN Emergency Requesting physician: Bird Dunn Chief Complaint Chief complaint: Left arm numbness Uncontrolled HTN History of Present Illness Narrative: 39 y/o AAF h/o works at [employer] and note SBP 220 and DBP 120 while at work and some numbness in L upper extremity and came to ER for eval. H/O HTN during all her preg that resoolved afetr delivery until she had her last child 10 yrs ago and since then she has had HTN that often is poorly controlled. She has been on multiple medication regiments. She has H/O HARJINDER reently dx'd but does not have CPAP machine. No palp/tremors/flushing. No w/u to r/o 2ry causes for HTN. Admits to freq use of NSAIDs. W/U has includied head imaging and Neuro eval. Bp meds have been trtrared up. Cont with some LUE nuero symptoms FHx of HTN. Review of Systems Review of Systems No fever, chills or weakness chest discomfort, no palpitation No shortness of breath or coughing No abdominal pain, nausea or vomiting No urinary symptoms No any rash or wounds Right upper extremity wakness and numbnessa Eyes: Reports no additional eye complaints Reports system reviewed and no additional complaints, except as documented and Reports Normal hearing present Cardiovascular: Reports no additional cardiovascular complaints Respiratory: Reports no additional respiratory complaints Gastrointestinal: Reports no additional gastrointestinal complaints Musculoskeletal: Reports no additional musculoskeletal complaints Skin/Breast: Reports system reviewed and no additional complaints, except as docu Reports as per HPI and Reports Normal hearing present Psychiatric: Reports as per HPI Endocrine: Reports no additional endocrine complaints Hematologic/Lymphatic: Reports no additional hematologic/lymphatic complaints Allergic/Immunologic: Reports no additional allergic/immunologic complaints PMF Past Medical History Medical History Heart disease Hypertension Social History Social History Household Members: Family and Children Housing: House Do you presently have visiting nurse or other home services: No Patient Tobacco Use Status: Never used Tobacco e-Cigarette/Vaping Use: Never Used Currently Displaying Signs/Symptoms of Drug Intoxication Withdrawal: No Advance Directives: No Do you have thoughts of harming others: None Do you have a plan to hurt others: No Plan Patient : No Meds Allergies Allergy/AdvReac Type Severity Reaction Status Date / Time No Known Allergies Allergy Unverified 11/19/19 19:31 [No Known Allergies*] Active Medications: Current Medications Generic Name Dose Route Start Last Admin Trade Name Freq PRN Reason Stop Dose Admin Acetaminophen 650 mg 09/06/20 11:28 Acetaminophen 325 Mg Tablet PO Q6H PRN Pain, Mild (Pain Scale 1-3) Amlodipine Besylate 5 mg 09/07/20 09:00 Amlodipine Besylate 5 Mg Tablet PO DAILY [facility] Protocol Aspirin 81 mg 09/07/20 09:00 Aspirin Enteric Coated 81 Mg Tablet. PO DAILY [facility] Atorvastatin Calcium 40 mg 09/06/20 11:35 09/06/20 15:05 Atorvastatin Calcium 40 Mg Tablet PO 40 mg DAILY [facility] Administration Enoxaparin Sodium 40 mg 09/06/20 11:30 09/06/20 12:03 Enoxaparin Sodium 40 Mg/0.4 Ml Syringe SUBCUT 40 mg Q24H [facility] Administration Ondansetron HCl 4 mg 09/06/20 11:28 Ondansetron Hcl 4 Mg/2 Ml Vial IVPUSH Q8H PRN Nausea and Vomiting Pharmacy Consult 1 each 09/06/20 07:09 Consult Rx Perform Med Rec MISCELLANE ONCE PRN Consult order Sodium Chloride 3 ml 09/06/20 16:00 09/06/20 16:49 0.9 % Sodium Chloride Flush 3 Ml Syringe IVFLUSH 3 ml QSHIFT [facility] Administration Valsartan 320 mg 09/07/20 09:00 Valsartan 320 Mg Tablet PO DAILY [facility] Protocol Home Medications Medication Instructions Recorded Confirmed Last Taken Type valsartan-hydrochlorothiazide 1 tab PO DAILY 09/06/20 09/06/20 Unknown History Physical Exam Vital Signs: Last Vital Signs Temp 98.7 F 09/06/20 16:28 Pulse 81 09/06/20 16:28 Resp 18 09/06/20 16:28 BP 168/95 H 09/06/20 16:28 Pulse Ox 99 09/06/20 16:28 Body Mass Index 40.8 Const Other: Constitutional : Alert, oriented, mildly anxious Neck : Normal inspection, Supple Cardiovascular : RRR, S1 S2, no lower extremity edema Respiratory : Good bilateral air entry, no crackles, wheezes or rhonchi Gastrointestinal: soft, lax, Normal bowel sounds, Non tender Skin : Warm/Dry, No rash Neurological : Alert & oriented x3, right hand mild weakness on the transmission worker General: cooperative, comfortable, no acute distress, well developed, alert and awake Nutritional Appearance: well nourished Orientation/consciousness: oriented to person, oriented to place and oriented to time Limitations: no limitations HENGA Head: Yes normal to inspection, Yes normocephalic and Yes atraumatic Ears: hearing grossly normal bilaterally General nose exam: Normal external nose present Face and sinus: Yes normal facial exam Mouth: Normal oral and palatal mucosa present Eyes General: appearance normal, both eyes and all related structures Visual Stevens: normal visual stevens by confrontation Alignment and Position: alignment normal Periorbital: periorbital findings normal Eyelids: Yes eyelids normal Conjunctivae: conjunctivae normal Sclerae: sclerae normal Corneas: corneas normal Pupils: Equal, round and reactive pupils present and Pupil accommodation reflex normal EOM: EOMs intact bilaterally Direct Ophthalmoscopy: normal light reflex Neck Neck: Yes normal visual inspection, Yes full ROM and Yes no meningeal signs Thyroid: Thyroid normal Carotids: normal carotid upstroke and bounding pulses Chest Chest palpation & inspection: normal inspection of the chest Resp Effort & Inspection: normal respiratory effort Auscultation: clear to auscultation bilaterally Cardio Rate: regular rate Rhythm: regular rhythm Heart sounds: S1 normal heart sound present and S2 normal heart sound present Peripheral pulses: Peripheral pulses 2+ throughout GI Inspection: Yes normal to inspection Percussion: Yes normal to percussion Auscultation: normal bowel sounds Rectal Exam - Female: deferred Back/Spine/Pelvis Cervical Spine: normal cervical lordosis and cervical ROM normal Thoracic/Lumbar Spine: thoracic and lumbar spine normal to inspection Skin General skin exam: no rashes or lesions noted Neuro Other: She has no drift of the upper extremities, but on individual muscle testing there is clearly submaximal voluntary effort in all movements, including bilateral transmission worker which is weak. She does not appose her finger and is slow in rapid alternating movements. General: oriented to person, oriented to place, oriented to time, gait normal, tone normal, moves all extremities, Normal light touch and pain sensation, no meningeal signs, no focal motor deficits, CN's II-XI intact bilaterally, normal sensation to monofilament and deep tendon reflexes 2+ bilaterally Cranial nerves: Yes CN's II-XII intact bilaterally, Yes Equal, round and reactive pupils present, Yes Bilaterally intact EOM present, Yes Nystagmus not present, Yes Normal facial strength present, Yes Midline tongue present, Yes Normal gag reflex present, Yes Symmetric palate elevation present, Yes Normal hearing present and Yes Ability to bilaterally rotate head present Cognition (Neuro): normal cognition Speech: Other speech findings present (Neuro) Gait exam (Neuro): Normal gait present Motor exam (neuro): Pronator motor function not present, no tremor noted, no asterixis, Motor fasciculations not present, Normal motor muscle tone present throughout and Motor abnormalities not present Sensory Exam: Bilaterally intact graphesthesia Deep tendon reflexes (DTR's): Right triceps reflex intensity grade: 2+, Left triceps reflex intensity grade: 2+, Rt Biceps (C5, C6): 2+, Left biceps reflex intensity grade: 2+, Right brachioradialis reflex intensity grade: 2+, Left brachioradialis reflex intensity grade: 2+, Right patellar reflex intensity grade: 2+, Left patellar reflex intensity grade: 2+, Right ankle reflex intensity grade: 2+ and Left ankle reflex intensity grade: 2+ Plantar Reflex Responses: downgoing: right, left and bilateral Coordination: [id number] test normal and [id number] test normal Pupils: Normal pupillary reactivity/response: bilateral Extrem General: Yes normal to inspection, Yes normal exam except as noted and Yes no pedal edema Psych Appearance: grossly normal Mental Status: mental status grossly normal Speech and movement: Normal speech and movement present and Clear speech present Affect: normal affect Attitude: cooperative Thought process: Normal thought process present Results Lab Results Result Diagrams: 09/06/20 04:55 09/06/20 04:55 Lab results: Chemistry 09/06/20 04:55 Sodium 138 Potassium 3.4 Carbon Dioxide 25 BUN 12 Creatinine 0.75 Calcium 9.1 Hematology 09/06/20 04:55 WBC 6.9 Hgb 11.1 L Plt Count 255 Urinalysis 09/06/20 07:22 Urine Color STRAW Urine Appearance CLEAR Urine pH 5.5 Ur Specific [place] <= 1.005 Urine Protein NEG Urine Glucose (UA) NEG Urine Ketones NEG Urine Blood 3+ H Urine Nitrite NEG Ur Leukocyte Esterase NEG Urine RBC 1-4 Urine WBC 0-2 Ur Squamous Epith Cells 1+ Assessment and Plan (1) Numbness of left hand: Status: Acute No clearly or objective evidence of a neurological deficit. Her exam is suggestive of her submaximal voluntary effort. MRI being normal rules out acute stroke, MS, et cetera. (2) Left arm weakness: Status: Acute (3) Hypertensive emergency: Status: Acute HTM Emergency with TOD of neuro syptoms but no definite evidence of CVA as per Neuro. Currently on Norvasc diovan and will jazmín need additional BP meds including a diuretic and possibly a BBlocker to achiee BP control Need to stress L/S changes: WT loss; avoid NSAIDs, low salt intake; use her CPAP machine W/U to r/o 2ry causes of HTN: ESTRELLITA and endocrine causes ( pheo, primary hyperaldo and thyroid disease) REC: track BP and add HCTZ 12.5 in am if remains elevated and cont prn BP meds ( hydralazine 10 q 6 hrs for SBP > 180 or DBP > 100); doppler of renals with low threshld to get CTA to definitively r/o ESTRELLITA ( eg FMD ESTRELLITA) will follow brii with team Procedures Date of Service Date of Service: 09/06/20
[2020-09-07 00:15] VITALS: BP 187/100; PULSE 80; RESP 18; TEMP 37.2; O2SAT 99
[2020-09-07 00:30] VITALS: BP 170/90; PULSE 76
[2020-09-07 03:59] VITALS: BP 177/93; PULSE 84; RESP 18; TEMP 36.9; O2SAT 99
[2020-09-07 06:51] LABS: Hematocrit 34.8 % (37-47); Hemoglobin 11.1 g/dl (12.0-16.0); Mean Corpuscular HGB Conc 31.9 g/dl (31.0-35.0); Mean Corpuscular Hemoglobin 27.3 pg (27.0-33.0); Mean Corpuscular Volume 85.5 fL (80-98); Mean Platelet Volume 12.8 fL (9.4-12.3); Platelet Count 240 X10*3/uL (160-400); Red Blood Count 4.07 X10*6/uL (4.20-5.50); Red Cell Distribution Width 13.8 % (11.0-16.0); White Blood Count 5.5 X10*3/uL (4.8-10.8)
[2020-09-07 06:54] VITALS: BP 148/90; PULSE 74; RESP 19; TEMP 36.6; O2SAT 97
[2020-09-07 07:07] LABS: Anion Gap 12 (12-20); Blood Urea Nitrogen 8 mg/dL (9-16); Calcium 8.7 mg/dL (8.4-10.2); Carbon Dioxide 23 mmol/L (22-29); Chloride 105 mmol/L (96-108); Creatinine Clr Calc Pharmacy 128.4; Estimated Glomerular Filt Rate > 60; Glucose Random 193 mg/dL (60-115); Potassium 3.2 mmol/L (3.3-5.1); Sodium 137 mmol/L (135-145)
[2020-09-07 07:13] LABS: Cholesterol 152 mg/dL; HDL Cholesterol 62 mg/dL; LDL Cholesterol Calculated 65 mg/dl; Triglycerides 126 mg/dL
--- NOTE | 2020-09-07 08:46 | MHC.CM.PN ---
pt lives in home c 3 of her children, 2 of which are teenagers. the patient reports that she is independent in her care. she states that she does have family that live in the area and can help her c a ride home [place]. pt reports that she does not use any AD c ambulation, however she also told me that she has recieved a walker, bed rail and shower bar installation from [facility] - her insurer. she currently has no svcs. in the home and denies the need for vna at [place]. dc plan is home no svcs. cm to cont. to follow.
[2020-09-07] MEDS: Aspirin Enteric Coated 81 MG TABLET.DR PO (09:21)
[2020-09-07] MEDS: Atorvastatin Calcium 40 MG TABLET PO (09:21)
[2020-09-07] MEDS: amLODIPine Besylate 5 MG TABLET PO (09:21)
[2020-09-07] MEDS: Valsartan 320 MG TABLET PO (09:21)
[2020-09-07] MEDS: 0.9 % Sodium Chloride Flush 3 ML SYRINGE IVFLUSH (09:22)
[2020-09-07 10:25] LABS: Estimated Average Glucose 166 mg/dL; Hemoglobin A1c % 7.4 %
[2020-09-07 12:00] VITALS: BP 170/90; PULSE 68; TEMP 36.1
[2020-09-07] MEDS: Enoxaparin Sodium 40 MG/0.4 ML SYRINGE SUBCUT (12:04)
[2020-09-07] MEDS: hydroCHLOROthiazide 12.5 MG TABLET PO (12:04)
--- NOTE | 2020-09-07 14:08 | PM.DS ---
DS: Providers Provider Date of Service: 09/07/20 Date of admission: 09/06/20 11:28 Primary care physician: Unknown Physician Consults: 09/06/20 11:35 Consult to Nephrology Routine Consulting Provider: Evangelista Hernandez Reason for consultation: HTN emergency Consult to Neurology Routine Consulting Provider: [facility] Reason for consultation: LUE weakness and numbness, HTN Emergency for your kind eval DS: Diagnosis Discharge Diagnosis (1) Numbness of left hand: Status: Acute (2) Left arm weakness: Status: Acute (3) Hypertensive emergency: Status: Acute (4) Diabetes: Status: Acute DS: Medications Discharge Medications Home Medications: Previous Rx's Medication Instructions Recorded amlodipine 5 mg PO DAILY #30 tab 09/07/20 aspirin 81 mg PO DAILY #30 tab 09/07/20 atorvastatin 40 mg PO DAILY #30 tab 09/07/20 blood sugar diagnostic [Freestyle #50 ea 09/07/20 [employer] Test Strips] blood-glucose meter [Freestyle #1 ea 09/07/20 [employer]] lancets [FreeStyle Lancets] #100 ea 09/07/20 metformin 500 mg PO BID #60 tab 09/07/20 valsartan-hydrochlorothiazide 1 tab PO DAILY #30 tab 09/07/20 DS: Summary Hospital Course Hospital Course: Was admitted with left arm weakness and hypertensive emergency. MRI was negative stroke. She was started on blood pressure medications and blood pressure improved. Her valsartan/HCTZ was increased to 320/25 mg. she was started on amlodipine 5 mg daily. He was also given aspirin and statin. Renal Doppler was negative for renal artery stenosis. Her blood pressure medications should continue to be titrated outpatient. Patient also noted to have hyperglycemia with a fasting glucose of 193, her hemoglobin A1c was 7.4. This is consistent with a diagnosis of diabetes. Patient will be started on metformin and follow-up with primary care. Time Spent with Patient Time attestation: Total time spent providing and/or coordinating discharge services: Discharge coordination time: Greater than 30 minutes Quality: Stroke Does the patient have a stroke diagnosis?: No Physical Exam Vital Signs: Vital Signs: Last Vital Signs Temp 97 F 09/07/20 12:00 Pulse 68 09/07/20 12:00 Resp 19 09/07/20 06:54 BP 170/90 H 09/07/20 12:00 Pulse Ox 97 09/07/20 06:54 Body Mass Index 40.8 General: AO X 3, no acute distress Resp: CTA bilateral CVS: S1,S2,RRR GI: soft, non tender, non distended Neuro: motor grossly intact Psych: appropriate affect DS: Data Data Completed and Pending Labs on day of discharge: Laboratory Results - last 24 hr 09/07/20 09/07/20 09/07/20 05:19 05:19 05:19 WBC 5.5 RBC 4.07 L Hgb 11.1 L Hct 34.8 L MCV 85.5 MCH 27.3 MCHC 31.9 RDW 13.8 Plt Count 240 MPV 12.8 H Absolute Nucleated RBC 0.000 Nucleated RBC % (auto) 0.0 Sodium 137 Potassium 3.2 L Chloride 105 Carbon Dioxide 23 Anion Gap 12 BUN 8 L Creatinine 0.68 Estim Creat Clear Calc 128.4 Estimated GFR > 60 Random Glucose 193 H Estimat Average Glucose Hemoglobin A1c % Calcium 8.7 Triglycerides 126 Cholesterol 152 LDL Cholesterol, Calc 65 HDL Cholesterol 62 09/07/20 05:19 WBC RBC Hgb Hct MCV MCH MCHC RDW Plt Count MPV Absolute Nucleated RBC Nucleated RBC % (auto) Sodium Potassium Chloride Carbon Dioxide Anion Gap BUN Creatinine Estim Creat Clear Calc Estimated GFR Random Glucose Estimat Average Glucose 166 Hemoglobin A1c % 7.4 Calcium Triglycerides Cholesterol LDL Cholesterol, Calc HDL Cholesterol Discharge Plan Discharge Patient Disposition: Home, Self-Care Discharge Diagnosis: hypertensive urgency Referrals: Physician,Unknown [Primary Care Provider] - 1 Week Discharge Medications: New valsartan-hydrochlorothiazide 320-25 mg tablet 1 tab PO DAILY Qty: 30 RF: 0 atorvastatin 40 mg Tablet 40 mg PO DAILY Qty: 30 RF: 0 amlodipine 5 mg Tablet 5 mg PO DAILY Qty: 30 RF: 0 aspirin 81 mg Tablet,Delayed Release (Dr/Ec) 81 mg PO DAILY Qty: 30 RF: 0 metformin 500 mg tablet 500 mg PO BID Qty: 60 RF: 0 (DME) lancets [FreeStyle Lancets] 28 gauge misc See Rx Instructions .ROUTE .MEDSUPPLY Qty: 100 RF: 0 (DME) Freestyle [employer] Test Strips Strip See Rx Instructions .ROUTE .MEDSUPPLY Qty: 50 RF: 0 (DME) blood-glucose meter [Freestyle [employer]] Misc See Rx Instructions .ROUTE .MEDSUPPLY Qty: 1 RF: 0 Discontinued valsartan-hydrochlorothiazide 160-25 mg tablet 1 tab PO DAILY RF: 0 Discharge Orders: Discharge Order (Routine); Ordered 09/07/20 Ordered By: Carlos Ovalle Diet: diabetic diet Activity on Discharge: As tolerated Stand Alone Forms: Patient Portal Discharge page, Work/School Release Care Plan Goals: dm control, htn control Health Concerns: htn, dm Plan of Treatment: start meds as prescribed, follow up with pcp Assessment: see above Discharge Date/Time: 09/07/20 14:37
== END 2020-09-07 14:37 | disposition home or self-care (01) | DRG 305 ==
LOC: HO.ED 09:10 → HO.EDOVER 12:19 → HO.IMC 13:41
PROVIDERS: Emergency Medicine; Admitting Provider Student in an Organized Health Care Education/Training Program; Emergency Provider Student in an Organized Health Care Education/Training Program; Visit Provider Internal Medicine
DX: I16.1 Hypertensive emergency (principal); Z68.41 Body mass index [BMI] 40.0-44.9, adult; G47.33 Obstructive sleep apnea (adult) (pediatric); G83.24 Monoplegia of upper limb affecting left nondominant side; E66.01 Morbid (severe) obesity due to excess calories; R20.0 Anesthesia of skin; Z20.822 Contact with and (suspected) exposure to COVID-19; Z79.82 Long term (current) use of aspirin; Z79.84 Long term (current) use of oral hypoglycemic drugs; Z79.899 Other long term (current) drug therapy
CPT/HCPCS: 36415; 70450; 70496; 70498; 70551; 71045; 80048; 80053; 80061; 80307; 81001; 82077; 83036; 83735; 84484; 85025; 85027; 85610; 87635; 93005; 93975; 97166; 99285; J1650; Q9967